=== PATIENT | female | born 1980 | race Caucasian/White ===

== ENCOUNTER 2020-10-15 08:54 | Emergency (ER) | payer OTHER, SELFPAY ==
[2020-10-15 08:57] VITALS: BP 125/75; PULSE 85; RESP 16; TEMP 36.7; O2SAT 98; BMI 25.8
--- NOTE | 2020-10-15 09:38 | ED.ALLEREA ---
HPI - Allergic Reaction General Chief complaint: Allergic Reaction Stated complaint: allergic reaction Time Seen by Provider: 10/15/20 09:38 Source: patient Mode of arrival: ambulatory Limitations: no limitations History of Present Illness HPI narrative: 40 y/o female with history of anaphylaxis due to peanuts presents to the ER via EMS with mild allergic reaction symptoms after sitting next to someone who was eating a peanut butter cup. She reports starting to feel itchy and her coworkers reported her face was starting to swell. She did not feel any sensation of facial or oral swelling. She asked for Benadryl but school nurse was unable to give so she was administered an EpiPen and brought to the hospital for evaluation. No rash, SOB, wheezing or other symptoms on arrival. MD complaint: allergic reaction Onset (ago): hour(s) Exposure: food Known history of allergy to: peanuts Symptoms: itching and facial swelling Severity: mild Treatment prior to arrival: epinephrine Previous Allergic Reaction History: anaphylaxis Related Data Allergies Allergy/AdvReac Type Severity Reaction Status Date / Time erythromycin base Allergy Hives Verified 10/15/20 09:02 morphine Allergy Hives Verified 10/15/20 09:02 peanut Allergy Hives Verified 10/15/20 09:02 scallops Allergy Hives Verified 10/15/20 09:02 sesame seed Allergy Hives Verified 10/15/20 09:02 shrimp Allergy Hives Verified 10/15/20 09:02 strawberry Allergy Hives Verified 10/15/20 09:02 Sulfa (Sulfonamide Allergy Hives Verified 10/15/20 09:02 Antibiotics) Review of Systems Constitutional: Constitutional: Denies chills, Denies fever(s) and Denies headache(s) Eyes: Eyes: Reports no additional eye complaints ENT: Denies headache(s), Denies throat swelling and Denies tongue swelling Cardiovascular: Cardiovascular: Denies chest pain, Denies rapid heart rate and Denies dyspnea Respiratory: Respiratory: Denies dyspnea Gastrointestinal: Gastrointestinal: Denies nausea and Denies vomiting Integumentary/Breasts: Skin/Breast: Denies rash Neurologic: Denies headache(s) Allergic/Immunologic: Allergic/Immunologic: Denies throat swelling and Denies tongue swelling PMF Past Medical History Attestation statement: The following information was validated with the patient. Medical History (Updated 10/15/20 @ 09:40 by ROLANDO Moya) No known health problems Social History Social History Alcohol intake: never Smoked in Last 30 Days: No Use of substances other than those prescribed or required for medical reasons: No Advance Directives: No Advance Directives Information Provided: No Physical Exam Vital Signs: Vital Signs: Last Vital Signs Temp 98.0 F 10/15/20 08:57 Pulse 85 10/15/20 08:57 Resp 16 10/15/20 08:57 BP 125/75 10/15/20 08:57 Pulse Ox 98 10/15/20 08:57 Body Mass Index 25.8 Appearance: Alert. Oriented X3. No acute distress. Eyes: Pupils equal, round and reactive to light. ENT: Pharynx normal. Neck: Normal inspection. Neck supple. CVS: Normal heart rate and rhythm. Pulses normal. Respiratory: No respiratory distress. Breath sounds normal. Abdomen: Soft and nontender. +BS x4 Skin: Skin warm and dry. Normal skin color. Normal skin turgor. No rashes. Extremities: No lower extremity edema. Neuro: Oriented X 3. No motor deficit. No sensory deficit. Course Course Course Narrative: 40 y/o female with history of anaphylaxis presenting s/p EpiPen administration for some mild allergy symptoms exhibited by close peanut exposure but not direct contact or consumption. She is vitally stable with HR 80-90's, BP normal. Will observe and monitor in the ER. Reevaluation(s) Reevaluation #1: VS remain stable. Stable for discharge home. Discharge Plan Discharge Clinical Impression: Allergic reaction Qualifiers: Encounter type: initial encounter Qualified Code(s): T78.40XA - Allergy, unspecified, initial encounter Patient Disposition: Home, Self-Care Instructions: Food Allergy (ED), General Allergic Reaction (ED) Additional Instructions: Recommend benadryl as needed for itching or rash. If you use your EpiPen come to the ER for evaluation. If you develop new or worsening symptoms call 911 or come back to the ER for further evaluation. Interventions: ED Discharge Assessment Last Done: 10/15/20 10:07 Discharge Date/Time: 10/15/20 10:14
== END 2020-10-15 10:14 | disposition home or self-care (01) ==
PROVIDERS: Emergency Provider Emergency Medicine; PCP Internal Medicine
DX: T78.40XA Allergy, unspecified, initial encounter (principal); L29.9 Pruritus, unspecified; X58.XXXA Exposure to other specified factors, initial encounter
CPT/HCPCS: 99282; 99284